=== PATIENT | male | born 1995 | race Caucasian/White ===

== ENCOUNTER 2022-01-15 22:02 | Emergency (ER) | payer OTHER ==
[2022-01-15 22:23] VITALS: BP 122/80; PULSE 79
== END 2022-01-15 23:27 | disposition home or self-care (01) ==
LOC: JD.ED 22:02
DX: H66.41 Suppurative otitis media, unspecified, right ear (principal); Z72.0 Tobacco use; Z20.822 Contact with and (suspected) exposure to COVID-19
CPT/HCPCS: 99283

== ENCOUNTER 2022-06-20 00:41 | Emergency (ER) | payer OTHER ==
[2022-06-20 00:52] VITALS: BP 117/79; PULSE 56
[2022-06-20] MEDS ORDERED: Lidocaine 1% 10 ML MDV INJECT ONE (01:08)
[2022-06-20] MEDS ORDERED: Cephalexin 500 MG Cap PO ONE (01:09)
== END 2022-06-20 02:05 | disposition home or self-care (01) ==
LOC: JD.ED 00:41
DX: S91.311A Laceration without foreign body, right foot, initial encounter (principal); F17.210 Nicotine dependence, cigarettes, uncomplicated; W26.8XXA Contact with other sharp object(s), not elsewhere classified, initial encounter
CPT/HCPCS: 12002; 99282; A9270

== ENCOUNTER 2024-08-25 13:39 | Emergency (ER) | payer OTHER ==
[2024-08-25] MEDS: Lidocaine/Epineph/Tetracaine 3 ML Syringe TOP ONE (15:07)
[2024-08-25] MEDS: Sulfamethoxazole/Trimethoprim 800-160 MG Tab PO STA (16:18)
[2024-08-25 17:02] VITALS: BP 124/78; PULSE 58
== END 2024-08-25 16:20 | disposition home or self-care (01) ==
LOC: JD.ED 13:39
DX: L05.91 Pilonidal cyst without abscess (principal); Z79.2 Long term (current) use of antibiotics
CPT/HCPCS: 10080; 99283; A9270; 10060